=== PATIENT | female | born 2000 | race Caucasian/White ===

== ENCOUNTER 2020-06-27 20:09 | Emergency (ER) | payer OTHER, BC ==
[~2020-06-27] VITALS: Ht 167.6 cm; Wt 88.5 kg
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
[2020-06-27] MEDS ORDERED: CYCL10TA2 PO (22:32)
[2020-06-27] MEDS ORDERED: NAPR-514 PO (22:32)
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
[2020-06-27 22:40] VITALS: BP 113/65
== END 2020-06-27 22:40 | disposition home or self-care (01) ==
LOC: ER 20:09
DX: S16.1XXA Strain of muscle, fascia and tendon at neck level, initial encounter (principal); S80.11XA Contusion of right lower leg, initial encounter; M79.661 Pain in right lower leg; R51 Headache; V49.9XXA Car occupant (driver) (passenger) injured in unspecified traffic accident, initial encounter; Y93.89 Activity, other specified; Y92.413 State road as the place of occurrence of the external cause; Y99.8 Other external cause status
CPT/HCPCS: 73590; 81025; 99283